=== PATIENT | male | born 1945 | race Caucasian/White ===

== ENCOUNTER 2022-12-20 17:48 | Emergency (ER) | payer MEDICARE, BC, SELFPAY ==
[2022-12-20] VITALS (26 sets, daily range): BP systolic 132–173; BP diastolic 58–86; PULSE 59–66; RESP 18; O2SAT 96–100
--- NOTE | 2022-12-20 17:45 | RT.EKG_ITS ---
APPROVED REPORT Exam: Resting ECG Reason for Exam: chest pain Patient Location: E HR:64 bpm ECG Measurements Heart Rate 64 AXIS SD 197 P 74 QRSd 100 QRS 43 QT 394 T 61 QTc 407 Conclusion Sinus rhythm...normal P axis, V-rate 60- 99 Physician: no stemi
--- NOTE | 2022-12-20 18:09 | ED.GENADUL_ITS ---
Discharge Plan Discharge Details Chief Complaint: Chest Pain Clinical Impression: Chest pain Primary Care Provider: Lizette Fernandes ED Provider: Octavio Santos Medical Decision Making This is a 77-year-old male with a past medical history of prostate cancer initially years ago, followed by lung cancer with subsequent lobectomy 5 years ago, lung cancer with localized fusion/radiation, and recent lymph node lesions/cancer who he is currently receiving focus radiation for chemotherapy for, the most recent dosing was 5 days ago, who has recently moved up from [place], and now resides appear in [place], presents today for evaluation of chest pain. Patient states that about 30 minutes ago he was at a baseball game sitting watching his grandchildren play when he developed notable pressure in his chest, he felt short of breath during these moments, and began taking deep breaths. The pressure lasted for about 5 to 6 minutes and gradually improved with a deep breath. It then returned again a few minutes later, and again resolved with deep breathing. Currently he denies any chest pain or shortness of breath and states he feels much better. He states his pain and symptoms have completely resolved. A longer strip he recently had was a few days ago traveling up from [place] by car to [place]. He denies any history of blood clots or PEs. He denies any history of cardiac disease. While on a treadmill for stress test 15 years ago he did have an episode of V. tach, cardiac catheterization at that time returned clean. He does have a history of type 2 diabetes. He does not smoke or drink. He has no other complaints at this time. No other modifying factors. No recent exertional symptoms otherwise. Exam demonstrates well-appearing male, no calf tenderness, no pitting edema. Concern for potential PE versus cardiac etiology. Patient is moderate risk, we will get D-dimer for the patient. We will get serial troponins, evaluate for concerning etiologies, monitor closely and reassess. EKG shows no evidence of STEMI. 7:51 PM Laboratory work-up has returned, D-dimer is positive at 719, creatinine 1.7, GFR 41, with concern for PE I do feel that CTA is warranted especially with the patient's notably elevated risk factors. Per the literature age adjustment was performed in increments of years of 10, and so he cannot be age-adjusted as normal at this time. Troponin normal. proBNP normal suggesting no heart strain. Pending repeat troponin and repeat EKG as well as CTA results. Patient will be signed out to my colleague Dr. Rakan Hassan for follow-up on these. Patient otherwise remains chest pain-free. HPI General Date/Time Provider Initiated Documentation: 12/20/22 17:53 . HPI Narrative: This is a 77-year-old male with a past medical history of prostate cancer initially years ago, followed by lung cancer with subsequent lobectomy 5 years ago, lung cancer with localized fusion/radiation, and recent lymph node lesions/cancer who he is currently receiving focus radiation for chemotherapy for, the most recent dosing was 5 days ago, who has recently moved up from [place], and now resides appear in [place], presents today for evaluation of chest pain. Patient states that about 30 minutes ago he was at a baseball game sitting watching his grandchildren play when he developed notable pressure in his chest, he felt short of breath during these moments, and began taking deep breaths. The pressure lasted for about 5 to 6 minutes and gradually improved with a deep breath. It then returned again a few minutes later, and again resolved with deep breathing. Currently he denies any chest pain or shortness of breath and states he feels much better. He states his pain and symptoms have completely resolved. A longer strip he recently had was a few days ago traveling up from [place] by [place]. He denies any history of blood clots or PEs. He denies any history of cardiac disease. While on a treadmill for stress test 15 years ago he did have an episode of V. tach, cardiac catheterization at that time returned clean. He does have a history of type 2 diabetes. He does not smoke or drink. He has no other complaints at this time. No other modifying factors. No recent exertional symptoms otherwise. Related Data Allergies Allergy/AdvReac Type Severity Reaction Status Date / Time No Known Allergies Allergy Unverified 12/20/22 17:55 General Stated Complaint: Chest Pain MYRTLE: 3 Review of Systems All systems reviewed & are unremarkable except as noted in HPI and below PFSH All Active Problems (Updated 12/20/22 @ 19:54 by Octavio Santos DO) Chest pain (Acute) Social History Smoking/Tobacco Use Status: Former Tobacco Use Smoking risk assessment performed?: Yes Alcohol Intake: current Alcohol Intake frequency: holidays/special occasions only Alcohol type: beer, wine and hard liquor Substance use type: does not use Housing: house Do you feel safe at home: Yes Do you feel safe in your relationship?: Yes Exam Narrative Exam Narrative: 1.Const: Well-nourished, Well-developed, appearing stated age 2.Eyes: PERRL, no conjunctival injection, and symmetrical lids. 3.ENT: Atraumatic external nose and ears. Moist MM. Neck: Symmetric, trachea midline, No thyromegaly. 4.CVS: +S1/S2, No murmurs or gallops. Peripheral pulses 2+ and equal in all extremities. Brisk capillary refill in all extremities. 5.RESP: Unlabored respiratory effort. Clear to auscultation bilaterally. No wheezes rales or rhonchi 6.GI: Soft, Nontender/Nondistended, No hepatosplenomegaly. No guarding or rebound. 7.MSK: Normocephalic/Atraumatic, Extremities w/o deformity or ttp No cyanosis or clubbing, Normal movement of all extremities 8.Skin: Warm, Dry. No rashes or lesions. 9.Neuro: vp foundation II-XII grossly intact. Sensation grossly intact, no focal neurologic deficits. 10.Psych: (AAO) x3. Appropriate mood and affect Course Vital Signs Vital signs: Vital Signs Pulse 63 12/20/22 17:53 Respiratory Rate 18 12/20/22 17:53 Blood Pressure 173/65 H 12/20/22 17:53 Pulse Oximetry 97 12/20/22 17:53 Pulse 63 12/20/22 17:53 Respiratory Rate 18 12/20/22 17:53 Respiratory Effort Normal 12/20/22 18:04 Respiratory Depth Normal 12/20/22 17:59 Respiratory Pattern Normal 12/20/22 17:59 Blood Pressure 173/65 H 12/20/22 17:53 Blood Pressure Position Supine 12/20/22 17:53 Pulse Oximetry 97 12/20/22 17:53 Oxygen Delivery Method Room Air 12/20/22 17:53 Oxygen Flow Rate 0 12/20/22 17:53 Pain Level 0 12/20/22 17:53 PAWSS Have you Been Recently Intoxicated or Drunk Within the Last 30 days?: No Have you Ever Experienced Previous Episodes of Alcohol Withdrawal?: No Have you ever Experienced Withdrawal Seizures?: No Have you ever Experienced Delirium Tremens(DT)s?: No Have you ever undergone Alcohol Rehabilitation Treatment (i.e, inpt ot outpatient treatment programs)?: No Have you ever Experienced Blackouts?: No Have you ever Combined Alcohol with other Downers within the last 90 days?: No Have you ever Combined Alcohol with any other Substance of Abuse during the last 90 days?: No Positive Blood Alcohol level on Presentation? [PCS.BAL]: No Evidence of Increased Autonomic Activity (i.e. HR>120, tremor, sweating, agitation, nausea)?: No Result: 0
[2022-12-20] MEDS: Aspirin 81 MG CHEW 324 MG CH (18:14)
[2022-12-20 18:19] LABS: Abs Immature Grans 0.02 10^3/uL (0.0-0.06); Absolute Basophil Count 0.07 10^3/uL (0.0-0.2); Absolute Eosinophil Count 0.29 10^3/uL (0.0-0.7); Absolute Lymphocyte Count 1.06 10^3/uL (1.2-3.4); Absolute Monocyte Count 0.76 10^3/uL (0.1-0.8); Absolute Neutrophil Count 4.42 10^3/uL (1.2-6.7); Basophils % 1.1; Eosinophils % 4.4; HGB 13.5 g/dL (13.5-17.5); Immature Grans % 0.3; MCH 29.9 pg (27.0-33.0); MCHC 33.8 % (32.0-36.0); MCV 89 fL (80-95); Monocytes % 11.5; Neutrophils % 66.7; Platelet Count 207 10^3/uL (130-400); RBC 4.51 10^6/uL (4.36-5.78); RDW 14.1 % (11.8-14.1); RDW-SD 45.4 fL; WBC 6.62 10^3/uL (4.4-10.8)
[2022-12-20 18:32] LABS: INR 0.9 (0.9-1.1); PTT Activated 25.8 sec (21.5-31.9)
[2022-12-20 18:44] LABS: ALT 29 U/L (16-63); AST 19 U/L (15-37); Albumin 4.1 g/dL (3.4-5.0); Alkaline Phosphatase 114 U/L (46-116); Anion Gap 9.1 mmol/L (3-11); BUN 32 mg/dL (7-18); Bilirubin, Total 0.6 mg/dL (0.2-1.0); CO2 27.9 mmol/L (21.0-32.0); CREATININE 1.7 mg/dL (0.70-1.30); Chloride 100 mmol/L (98-107); Estimated GFR 41.26 (mL/min/1.73m2); Glucose 169 mg/dL (74-106); NT-proBNP 82 pg/mL (<300); Potassium 4.1 mmol/L (3.5-5.1); Sodium 137 mmol/L (136-145); Total Protein 8.3 g/dL (6.4-8.2); Troponin I < 50 ng/L (<or=60)
--- NOTE | 2022-12-20 18:45 | DI.CT_ITS ---
Exam(s) CT CHEST PE CTA EXAM: CT CHEST PE CTA CLINICAL HISTORY: elevated dimer, cancer, r/o pe. TECHNIQUE: Imaging Protocol: Axial CT angiography was performed with multi-slice acquisition and mu lti-planar and/or 3D reconstructions. CONTRAST MATERIAL: Intravenous: Omnipaque 350 contrast volume:100 mL COMPARISON: No exams were available for comparison FINDINGS: Tracheobronchial tree: Patent where visualized. Pulmonary parenchyma: Moderate emphysematous changes are seen in the lungs. Calcified granulomas pre sent. Dependent atelectatic changes are present. No focal consolidating infiltrates. Pulmonary Arteries: No evidence of filling defect to suggest pulmonary emboli. Mediastinum and Karissa: No dominant adenopathy or fluid collection. The esophagus is unremarkable. Visualized thyroid gland: Unremarkable. Pleura: No effusion or pneumothorax. Heart: The heart is not dilated. Mild coronary artery calcification. No pericardial effusion. Aorta: Thoracic aorta non-dilated. No evidence of dissection. Atherosclerosis. Upper abdomen: There is a 1.5 cm right adrenal nodule with Hounsfield units of -16 HU. This is cons istent with a benign adenoma. Please correlate with patient's prior examinations. Soft tissues: Gynecomastia. Bones: Within normal limits for the patient's age. IMPRESSION: No evidence of pulmonary embolism, thoracic aortic dissection or aneurysm. RADIATION DOSE DELIVERED: 461.06mGy.cm Total DLP DATA REPOSITORY: All CT scans at this facility are submitted to the National Radiology Data Registry (NRDR) Dose Index Registry (DIR) with the [employer] (ACR). RADIATION OPTIMIZATION: All CT scans at this facility use at least one of these dose optimization te chniques: automated exposure control; mA and/or kV adjustment per patient size (includes targeted exa ms where dose is matched to clinical indication); or iterative reconstruction.
[2022-12-20 18:46] LABS: D-Dimer 719 ng/mlFEU (<500)
--- NOTE | 2022-12-20 19:45 | RT.EKG_ITS ---
APPROVED REPORT Exam: Resting ECG Reason for Exam: chest pain Patient Location: E HR:61 bpm ECG Measurements Heart Rate 61 AXIS AR 206 P 51 QRSd 104 QRS 25 QT 409 T 54 QTc 411 Conclusion Sinus rhythm...normal P axis, V-rate 60- 99 Physician: no stemi
[2022-12-20] MEDS: Normal Saline - Diluent 50 ML VIAL IJ (20:02)
[2022-12-20] MEDS: Omnipaque 350 MG/ML 100 ML BTL IJ (20:02)
--- NOTE | 2022-12-20 20:33 | DI.VRAD_ITS ---
PROCEDURE INFORMATION: Exam: CTA Chest With Contrast Exam date and time: 12/20/2022 7:56 PM Age: 77 years old Clinical indication: Other: Elevated dimer, cancer, R/O pe TECHNIQUE: Imaging protocol: Computed tomographic angiography of the chest with contrast. Exam focused on the arteries. 3D rendering (Not supervised by radiologist): MIP and/or 3D reconstructed images were created by the technologist. Contrast material: OMNIPAQUE 350; Contrast volume: 100 ml; Contrast route: INTRAVENOUS (IV); COMPARISON: No relevant prior studies available. FINDINGS: Pulmonary arteries: Normal. No pulmonary emboli. Aorta: Moderate atherosclerotic calcification throughout the aorta. No evidence of aortic aneurysm or dissection. Lungs: Moderate paraseptal emphysema in the upper lungs. No active pulmonary infiltrate. Pleural spaces: Unremarkable. No pneumothorax. No pleural effusion. Heart: Unremarkable. No cardiomegaly. No pericardial effusion. Lymph nodes: Unremarkable. No enlarged lymph nodes. Adrenal glands: 1.7 cm right adrenal nodule with average Hounsfield units in the negative range, compatible with a benign adenoma. Bones/joints: Moderate multilevel degenerative disc disease and anterior osteophyte formation throughout the thoracic spine. No vertebral body compression or acute fracture. Mild thoracic scoliosis. Soft tissues: Unremarkable. IMPRESSION: No evidence of pulmonary embolus or other acute abnormality chest. Chronic appearing findings as noted Dictated and Authenticated by: Jesús Rico MD. Ordering:SAMANTHA Cunningham MD
[2022-12-20 21:26] LABS: Troponin I < 50 ng/L (<or=60)
--- NOTE | 2022-12-20 22:02 | W.EDPROG ---
Date of service: 12/20/22 Time of Service: 22:02 Medical Decision Making Patient resting comfortably no acute distress. [address] unremarkable. Patient to follow-up with his primary care physician. Given home care instructions and return precautions Sign Out Sign Out Data: Sign Out Comment: Chest pain, fully resolved, pending repeat Trope, repeat EKG and CTA. Last updated by Octavio Santos DO at 12/20/22 20:00 Discharge Plan Disposition Patient Disposition: Home Discharge Details Chief Complaint: Chest Pain Clinical Impression: Chest pain Primary Care Provider: Lizette Fernandes ED Provider: Delfin Gould Discharge Instructions Instructions: Chest Pain (ED)
--- NOTE | 2022-12-22 07:29 | NUR.NOTE ---
Accessed pt chart to determine number of EKG orders. Nursing Note:
== END 2022-12-20 22:10 | disposition home or self-care (01) ==
PROVIDERS: Student in an Organized Health Care Education/Training Program; Emergency Provider Emergency Medicine; PCP Family Medicine
DX: R07.9 Chest pain, unspecified (principal); C34.90 Malignant neoplasm of unspecified part of unspecified bronchus or lung; Z85.46 Personal history of malignant neoplasm of prostate; Z92.3 Personal history of irradiation; Z90.2 Acquired absence of lung [part of]
CPT/HCPCS: 36415; 71275; 80053; 93005; 99285; 83735; 83880; 84484; 85025; 85379; 85610; 85730; 93010; 99284; J3490